=== PATIENT | male | born 1940 | race Caucasian/White ===

== ENCOUNTER 2019-05-07 18:05 | Emergency (ER) | payer OTHER ==
[2019-05-07] MEDS ORDERED: TETANUS & DIPHTHERIA TOX,ADULT 0.5 ML VIAL ONE (18:43)
[2019-05-07] MEDS ORDERED: NA CHLORIDE 0.9% 500 ML ONE (18:43)
[2019-05-07] MEDS ORDERED: CEFAZOLIN/SWI 1gm 1 GM/10 ML SYR ONE (18:43)
[2019-05-07] MEDS ORDERED: LIDOCAINE 1% MPF 30 ML VIAL ONE (19:00)
--- NOTE | 2019-05-07 19:07 | RAD REPORT ---
EXAM DESCRIPTION: CT - Head Brain Wo Cont - 05/07/2019 6:51 pm CLINICAL HISTORY: DIZZINESS Trauma, head injury, headache COMPARISON: No comparisons TECHNIQUE: All CT scans are performed using dose optimization technique as appropriate and may inclu de automated exposure control or mA/KV adjustment according to patient size. FINDINGS: No intracranial hemorrhage, hydrocephalus or extra-axial fluid collection.Mild generalized brain atrophy is present with moderate periventricular and deep white matter chronic microvascular i schemic changes.No areas of brain edema or evidence of midline shift. The paranasal sinuses and mastoids are clear. The calvarium is intact. Small right frontal scalp nadine juvenal. IMPRESSION: No acute intracranial abnormality.
[2019-05-07] MEDS ORDERED: LIDOCAINE 1% W/EPI 1:100,000 MDV 50 ML VIAL ONE (19:10)
--- NOTE | 2019-05-07 19:38 | ER ---
Nurse's Notes [facility] Name: Eagle Juarez Age: 78 yrs Sex: Male : 1940 Arrival Date: 05/07/2019 Time: 18:15 Bed 4 Private MD: Diagnosis: Laceration without foreign body of other part of head-complex, arterial involvment, large hematoma;Other specified injuries of head-deep, complex Presentation: 05/07 18:17 Presenting complaint: Patient states: Riding mower, didn't duck and right side of head jl7 hit the tree limb approx. 30-45 min ago, denies any pain, nausea, visual disturbance, GARCIA or dizziness. Transition of care: patient was not received from another setting of care. Onset of symptoms was May 07, 2019. Risk Assessment: Do you want to hurt yourself or someone else? Patient reports no desire to harm self or others. Initial Sepsis Screen: Does the patient meet any 2 criteria? No. Patient's initial sepsis screen is negative. Does the patient have a suspected source of infection? No. Patient's initial sepsis screen is negative. Care prior to arrival: None. 18:17 Method Of Arrival: Ambulatory 7 18:17 Acuity: JUAN 3 jl7 21:09 Complicating Factors: There are no complicating factors for this patient. jd3 Triage Assessment: 18:21 General: Appears in no apparent distress. uncomfortable, Behavior is calm, cooperative, jl7 appropriate for age. Pain: Denies pain. EENT: No signs and/or symptoms were reported regarding the EENT system. Neuro: Level of Consciousness is awake, alert, obeys commands, Oriented to person, place, time, situation, Appropriate for age Moves all extremities. Full function Speech is normal, Facial symmetry appears normal. Cardiovascular: Patient's skin is warm and dry. Respiratory: Airway is patent Respiratory effort is even, unlabored, Respiratory pattern is regular, symmetrical. Derm: Skin is pink, warm \T\ dry. Injury Description: Laceration sustained to right temporal area is contaminated, was sustained 30-60 minutes ago. is bleeding moderately. Historical: - Allergies: 18:21 No Known Allergies; jl7 - Home Meds: 18:21 None [Active]; jl7 - PMHx: 18:21 Cataracts; jl7 - PSHx: 18:21 cataract surgery; jl7 - Immunization history:: Adult Immunizations not up to date, Last tetanus immunization: > 10 years ago. - Social history:: Smoking status: Patient/guardian denies using tobacco. - Ebola Screening: : No symptoms or risks identified at this time. - Family history:: not pertinent. Screenin:52 Abuse screen: Denies threats or abuse. Denies injuries from another. Nutritional jl7 screening: No deficits noted. Tuberculosis screening: No symptoms or risk factors identified. Fall Risk None identified. Assessment: 18:38 General: See triage assessment. jl7 19:30 General: Appears in no apparent distress. comfortable, Behavior is calm, cooperative, jd3 appropriate for age. Pain: Denies pain. Neuro: Level of Consciousness is awake, alert, obeys commands, Oriented to person, place, time, situation. Cardiovascular: Capillary refill < 3 seconds Patient's skin is warm and dry. Respiratory: Airway is patent Respiratory effort is even, unlabored, Respiratory pattern is regular, symmetrical. GI: No signs and/or symptoms were reported involving the gastrointestinal system. : No signs and/or symptoms were reported regarding the genitourinary system. EENT: No signs and/or symptoms were reported regarding the EENT system. Derm: Skin is intact, Skin is dry, Skin is normal, Skin temperature is warm. Musculoskeletal: Circulation, motion, and sensation intact. Range of motion: intact in all extremities. Injury Description: Laceration sustained to right taoist is contaminated, bleeding moderately. 20:51 Reassessment: Patient appears in no apparent distress at this time. Patient and/or [facility] family updated on plan of care and expected duration. Pain level reassessed. Patient is alert, oriented x 3, equal unlabored respirations, skin warm/dry/pink. report given to Preeti RUSS at [facility]. bleeding controlled currently after provider sutured laceration. 21:09 Reassessment: Patient appears in no apparent distress at this time. No changes from j previously documented assessment. Patient and/or family updated on plan of care and expected duration. Pain level reassessed. Patient is alert, oriented x 3, equal unlabored respirations, skin warm/dry/pink. 21:19 Reassessment: report given to [facility]. [facility] Vital Signs: 18:21 BP 170 / 80; Pulse 66; Resp 18 S; Pulse Ox 95% on R/A; Pain 0/10; jl7 21:06 BP 180 / 77; Pulse 58; Resp 18 S; Pulse Ox 96% on R/A; jd3 ED Course: 18:13 Alek Ordonez MD is Attending Physician. zacarias 18:15 Patient arrived in ED. as 18:17 Oskar Rod, RN is Primary Nurse. jl7 18:19 Triage completed. jl7 18:21 Arm band placed on right wrist. Pressure dressing applied. jl7 18:51 CT Head Brain wo Cont In Process Unspecified. EDMS 18:52 Patient has correct armband on for positive identification. Placed in gown. Bed in low jl7 position. Call light in reach. Side rails up X 1. Pulse ox on. NIBP on. 19:03 Primary Nurse role handed off by Oskar Rod, JEB cc3 19:03 Aidee Perez is Primary Nurse. cc3 19:30 Primary Nurse role handed off by Aidee Perez jd3 19:30 Damon Barraza RN is Primary Nurse. jd3 19:45 Assist provider with laceration repair on right taoist that was between 7.6 to 12.5 cm jd3 using sutures. Set up tray. Performed by Alek Ordonez MD Dressed with 4X4s, Kerlix, Patient tolerated well. 20:15 Inserted saline lock: 20 gauge in left antecubital area, using aseptic technique. Blood jd3 collected. placed by Julian RUSS. 21:20 Patient transferred, IV remains in place. jd3 Administered Medications: 19:09 Drug: Lidocaine-Epinephrine -1%: (1:100,000) 10 ml {Note: given by Dr. 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 Exp: jd3 12/18/2020. Lot #: [id number]. } Route: IM; Site: right deltoid; 21:09 Follow up: Response: No adverse reaction jd3 20:36 Drug: Ancef 1 grams Route: IVPB; Site: left antecubital; jd3 21:09 Follow up: Response: No adverse reaction; IV Status: Completed infusion; IV Intake: [id number] Intake: 21:09 IV: 10ml; Total: 10ml. jd3 21:09 IV: 500ml; Total: 510ml. jd3 Outcome: 19:37 ER care complete, transfer ordered by MD. adames 21:19 Transferred by ground EMS to [facility], Transfer form completed. X-rays sent jd3 w/ patient. 21:19 Condition: stable 21:19 Instructed on the need for transfer, Demonstrated understanding of instructions. 21:20 Patient left the ED. jd3 Signatures: Dispatcher [employer] EDAlke Rodney MD MD cha Martinez, Amelia as Leal, Jahala, RN RN jl7 Damon Barraza RN RN jd3 Aidee Perez cc3 Corrections: (The following items were deleted from the chart) 21: 20:51 Reassessment: report given to Preeti RUSS at [facility]. jd3 jd3
--- NOTE | 2019-05-07 19:38 | EDPHYS ---
Physician Documentation [facility] Name: Eagle Juarez Age: 78 yrs Sex: Male : 1940 Arrival Date: 05/07/2019 Time: 18:15 Bed 4 Private MD: ED Physician Alek Ordonez HPI: 05/07 18:38 This 78 yrs old Male presents to ER via Ambulatory with complaints of zacarias Laceration To Head. 18:38 The patient has a laceration related to: doing yard work, occurred outdoors. The zacarias laceration(s) is(are) located on the top of head and right sikh. Onset: The symptoms/episode began/occurred just prior to arrival. Associated signs and symptoms: The patient has no apparent associated signs or symptoms. Historical: - Allergies: 18:21 No Known Allergies; jl7 - Home Meds: 18:21 None [Active]; jl7 - PMHx: 18:21 Cataracts; jl7 - PSHx: 18:21 cataract surgery; jl7 - Immunization history:: Adult Immunizations not up to date, Last tetanus immunization: > 10 years ago. - Social history:: Smoking status: Patient/guardian denies using tobacco. - Ebola Screening: : No symptoms or risks identified at this time. - Family history:: not pertinent. ROS: 18:38 Constitutional: Negative for fever, chills, and weight loss, Eyes: Negative for injury, zacarias pain, redness, and discharge, ENT: Negative for injury, pain, and discharge, Neck: Negative for injury, pain, and swelling, Cardiovascular: Negative for chest pain, palpitations, and edema, Respiratory: Negative for shortness of breath, cough, wheezing, and pleuritic chest pain, Abdomen/GI: Negative for abdominal pain, nausea, vomiting, diarrhea, and constipation, Back: Negative for injury and pain, : Negative for injury, bleeding, discharge, and swelling, MS/Extremity: Negative for injury and deformity, Neuro: Negative for headache, weakness, numbness, tingling, and seizure, Psych: Negative for depression, anxiety, suicide ideation, homicidal ideation, and hallucinations, Allergy/Immunology: Negative for hives, rash, and allergies, Endocrine: Negative for neck swelling, polydipsia, polyuria, polyphagia, and marked weight changes, Hematologic/Lymphatic: Negative for swollen nodes, abnormal bleeding, and unusual bruising. 18:38 Skin: Positive for laceration(s). Exam: 18:38 Constitutional: This is a well developed, well nourished patient who is awake, alert, zacarias and in no acute distress. Eyes: Pupils equal round and reactive to light, extra-ocular motions intact. Lids and lashes normal. Conjunctiva and sclera are non-icteric and not injected. Cornea within normal limits. Periorbital areas with no swelling, redness, or edema. ENT: Nares patent. No nasal discharge, no septal abnormalities noted. Tympanic membranes are normal and external auditory canals are clear. Oropharynx with no redness, swelling, or masses, exudates, or evidence of obstruction, uvula midline. Mucous membranes moist. Neck: Trachea midline, no thyromegaly or masses palpated, and no cervical lymphadenopathy. Supple, full range of motion without nuchal rigidity, or vertebral point tenderness. No Meningismus. Chest/axilla: Normal chest wall appearance and motion. Nontender with no deformity. No lesions are appreciated. Cardiovascular: Regular rate and rhythm with a normal S1 and S2. No gallops, murmurs, or rubs. Normal PMI, no JVD. No pulse deficits. Respiratory: Lungs have equal breath sounds bilaterally, clear to auscultation and percussion. No rales, rhonchi or wheezes noted. No increased work of breathing, no retractions or nasal flaring. Abdomen/GI: Soft, non-tender, with normal bowel sounds. No distension or tympany. No guarding or rebound. No evidence of tenderness throughout. Back: No spinal tenderness. No costovertebral tenderness. Full range of motion. Skin: Warm, dry with normal turgor. Normal color with no rashes, no lesions, and no evidence of cellulitis. MS/ Extremity: Pulses equal, no cyanosis. Neurovascular intact. Full, normal range of motion. Neuro: Awake and alert, GCS 15, oriented to person, place, time, and situation. Cranial nerves II-XII grossly intact. Motor strength 5/5 in all extremities. Sensory grossly intact. Cerebellar exam normal. Normal gait. Psych: Awake, alert, with orientation to person, place and time. Behavior, mood, and affect are within normal limits. 18:38 Head/face: Noted is a laceration(s), that is deep, that is jagged, 3 cm(s). Vital Signs: 18:21 BP 170 / 80; Pulse 66; Resp 18 S; Pulse Ox 95% on R/A; Pain 0/10; jl7 21:06 BP 180 / 77; Pulse 58; Resp 18 S; Pulse Ox 96% on R/A; jd3 Laceration: 18:38 Wound Repair of 3cm ( 1.2in ) subcutaneous laceration to top of head and left temporal zacarias area. Irregularly shaped.. Skin/tissue flap noted.. Distal neuro/vascular/tendon intact. Anesthesia: Local anesthetic administered with 8 mls of 1% lidocaine w/ Epi. Wound prep: Moderate cleansing by me, Copious irrigation. Skin closed with 6 1-0 Prolene using interrupted sutures and sterile technique. Dressed with Neosporin. Patient tolerated well. MDM: 18:13 Patient medically screened. [place] 18:44 Data reviewed: vital signs, nurses notes, radiologic studies, CT scan. [place] 05/07 19:14 Order name: CBC with Diff [facility] 05/07 19:14 Order name: CMP [facility] 05/07 18:37 Order name: CT Head Brain wo Cont; Complete Time: 19:32 [place] 05/07 18:37 Order name: Prolene, Sutures; Complete Time: 18:52 [place] 05/07 18:37 Order name: Dressing - Wound; Complete Time: 19:40 [place] 05/07 18:37 Order name: Gloves, Sterile; Complete Time: 18:52 [place] 05/07 18:37 Order name: Setup Suture Tray; Complete Time: 18:52 [place] 05/07 19:38 Order name: Wound dressing: surgicel, pressure dressing; Complete Time: 19:40 [place] 05/07 19:41 Order name: NPO; Complete Time: 19:42 [place] Administered Medications: 19:09 Drug: Lidocaine-Epinephrine -1%: (1:100,000) 10 ml {Note: given by Dr. 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 Exp: jd3 12/18/2020. Lot #: [id number]. } Route: IM; Site: right deltoid; 21:09 Follow up: Response: No adverse reaction jd3 20:36 Drug: Ancef 1 grams Route: IVPB; Site: left antecubital; jd3 21:09 Follow up: Response: No adverse reaction; IV Status: Completed infusion; IV Intake: [id number] Disposition: 05/07/19 19:37 Transfer ordered to [facility]. Diagnosis are Laceration without foreign body of other part of head - complex, arterial involvment, large hematoma, Other specified injuries of head - deep, complex. - Reason for transfer: Higher level of care. - Accepting physician is to [place] [facility]. - Condition is Fair. - Problem is new. - Symptoms have improved. Signatures: Dispatcher [employer] EDAlek Rodney MD MD cha Leal, Jahala, RN RN jl7 Damon Barraza RN RN jd3 Corrections: (The following items were deleted from the chart) 19:37 18:37 Dressing - Wound ordered. zacarias adames 21:20 19:37 05/07/2019 19:37 Transfer ordered to [facility]. jd3 Diagnosis is Laceration without foreign body of other part of head - complex, arterial involvment, large hematoma; Other specified injuries of head - deep, complex. Reason for transfer: Higher level of care. Accepting physician is to [place] [facility]. Condition is Fair. Problem is new. Symptoms have improved. zacarias
[2019-05-07 20:17] LABS: Absolute Lymphocytes (CBC) 3.5 K/uL (0.7-4.9); Basophils % 1.2 % (0-1.3); Hematocrit 42.2 % (39.6-49.0); Lymphocytes % 27.4 % (15.3-44.8); MPV 9.8 fL (7.6-11.3); RBC Red Blood Cell Count 4.26 M/uL (4.33-5.43)
[2019-05-07 20:36] LABS: Albumin 3.9 g/dL (3.4-5.0); Bilirubin Total 0.5 mg/dL (0.2-1.0); Potassium 4.2 mmol/L (3.5-5.1); Protein, Total 8.5 g/dL (6.4-8.2)
== END 2019-05-07 21:20 | disposition short-term general hospital (02) ==
LOC: ER 18:05
PROC: 0JQ00ZZ Repair Scalp Subcutaneous Tissue and Fascia, Open Approach (ICD-10-PCS; principal; 2019-05-07)
DX: S01.01XA Laceration without foreign body of scalp, initial encounter (principal); S00.93XA Contusion of unspecified part of head, initial encounter; Y93.H9 Activity, other involving exterior property and land maintenance, building and construction; Z23 Encounter for immunization
CPT/HCPCS: 96365; 85025; 36415; 80053; 70450; 90471; 90714; 99285; 12002; J0690

== ENCOUNTER 2021-06-22 13:36 | Emergency (ER) | payer OTHER ==
--- NOTE | 2021-06-22 14:01 | RAD REPORT ---
EXAM DESCRIPTION: CT - Ct Stroke Brain Wo Cont - 06/22/2021 1:50 pm CLINICAL HISTORY: stroke protocol Headache, drowsiness, CVA symptomology COMPARISON: Head Brain Wo Cont dated 05/07/2019 TECHNIQUE: All CT scans are performed using dose optimization technique as appropriate and may inclu de automated exposure control or mA/KV adjustment according to patient size. FINDINGS: No intracranial hemorrhage, hydrocephalus or extra-axial fluid collection.Mild generalized brain atrophy is present with moderate periventricular and deep white matter chronic microvascular i schemic changes. 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 In the right occipital region/ right posterior cerebral artery territory is eq uivocal findings of sulcal effacement. The paranasal sinuses and mastoids are clear. The calvarium is intact. IMPRESSION: No acute hemorrhage, hydrocephalus or midline shift. Equivocal findings of sulcal effacement indication fusion of the right posterior cerebral artery terr itory could indicate acute ischemia. MRI brain followup would be useful. The findings were discussed with Dr. Wilson in the ER On 06/22/2021 at 1:56 p.m. by telephone.
[2021-06-22 14:08] LABS: Absolute Lymphocytes (CBC) 2.6 K/uL (0.7-4.9); Basophils % 1.1 % (0-1.3); Hematocrit 40.1 % (39.6-49.0); Lymphocytes % 22.7 % (15.3-44.8); MPV 8.2 fL (7.6-11.3); RBC Red Blood Cell Count 4.15 M/uL (4.33-5.43)
[2021-06-22 14:12] LABS: Protime INR 1.03
[2021-06-22] MEDS ORDERED: NA CHLORIDE 0.9% 1,000 ML ONE (14:23)
[2021-06-22 14:29] LABS: Potassium 4.3 mmol/L (3.5-5.1)
[2021-06-22] MEDS ORDERED: ALTEPLASE 100 ML IV ONE (14:35)
[2021-06-22] MEDS ORDERED: NA CHLORIDE 0.9% 100 ML ONE (14:35)
[2021-06-22] MEDS ORDERED: LABETALOL 20 MG/4ML SYRINGE IV ONE (14:50)
--- NOTE | 2021-06-22 15:00 | RAD REPORT ---
EXAM DESCRIPTION: CT - Head angio - 06/22/2021 2:45 pm CLINICAL HISTORY: possible stroke Headache, drowsiness, CVA symptomology COMPARISON: Ct Stroke Brain Wo Cont dated 06/22/2021; Head Brain Wo Cont dated 05/07/2019 TECHNIQUE: CT angiography of the head was performed with MIPs. All CT scans are performed using dose optimization technique as appropriate and may include automated exposure control or mA/KV adjustment according to patient size. FINDINGS: No evidence of aneurysm is detected. Both M1 segments demonstrate irregular appearance lik shaylee related to atherosclerotic narrowings, greater on the left. No large vessel occlusion seen. Antegrade flow is seen in the vertebral arteries. Left vertebral artery appears dominant. The visualized dural venous sinuses are patent. 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 No large vessel occlusion evident.
--- NOTE | 2021-06-22 15:05 | EDPHYS ---
Physician Documentation [facility] Name: Eagle Juarez Age: 80 yrs Sex: Male : 1940 Arrival Date: 06/22/2021 Time: 13:42 Bed 3 Private MD: ED Physician Xenia Wilson HPI: 06/22 14:17 This 80 yrs old Male presents to ER via Wheelchair with complaints of S/S of ma2 Possible Stroke. 14:17 The patient's problem is reported as visual difficulty, weakness. Onset: The ma2 symptoms/episode began/occurred suddenly, 1 hour(s) ago. Associated signs and symptoms: Pertinent positives: ataxia, Pertinent negatives: chest pain, confusion, diarrhea, headache. Severity of symptoms: At their worst the symptoms were severe in the emergency department the symptoms are unchanged. The patient has not experienced similar symptoms in the past. Historical: - Allergies: 13:45 No Known Allergies; ll1 - PMHx: 13:45 Cataracts; ll1 - Immunization history:: Adult Immunizations up to date. - Social history:: Smoking status: Patient denies any tobacco usage or history of. - Family history:: not pertinent. ROS: 14:17 Constitutional: Negative for fever, chills, and weight loss. ma2 14:17 All other systems are negative. Exam: 14:17 Radiologist reports: Possible posterior stroke no acute bleeding ma2 14:17 Constitutional: This is a well developed, well nourished patient who is awake, alert, and in no acute distress. Head/Face: Normocephalic, atraumatic. Eyes: Pupils equal round and reactive to light, extra-ocular motions intact. Lids and lashes normal. Conjunctiva and sclera are non-icteric and not injected. Cornea within normal limits. Periorbital areas with no swelling, redness, or edema. ENT: Nares patent. No nasal discharge, no septal abnormalities noted. Tympanic membranes are normal and external auditory canals are clear. Oropharynx with no redness, swelling, or masses, exudates, or evidence of obstruction, uvula midline. Mucous membranes moist. Neck: Trachea midline, no thyromegaly or masses palpated, and no cervical lymphadenopathy. Supple, full range of motion without nuchal rigidity, or vertebral point tenderness. No Meningismus. Cardiovascular: Regular rate and rhythm with a normal S1 and S2. No gallops, murmurs, or rubs. Normal PMI, no JVD. No pulse deficits. Respiratory: Lungs have equal breath sounds bilaterally, clear to auscultation and percussion. No rales, rhonchi or wheezes noted. No increased work of breathing, no retractions or nasal flaring. Abdomen/GI: Soft, non-tender, with normal bowel sounds. No distension or tympany. No guarding or rebound. No evidence of tenderness throughout. MS/ Extremity: Pulses equal, no cyanosis. Neurovascular intact. Full, normal range of motion. 14:17 Neuro: Orientation: to person, place, time \T\ situation. Mentation: is normal, Memory: is normal, Cranial nerves: upper altitudinal loss noted, hononymous hemianopia noted, extraocular movements show gaze deviation to the lateral on right eye, medial on left eye, forward on right eye and forward on left eye, Facial palsy and sensory deficits are absent. Decreased sensation on left ear and left cheek, Speech is clear and appropriate. Tongue strength is normal, Cerebellar function: dysmetria is noted on the left, Motor: strength is 5/5 in the right hand, right arm and right leg, strength is 4/5 in the left arm and left leg, Sensation: Gait: is unsteady. Vital Signs: 13:44 Pain 0/10; ll1 13:55 BP 173 / 76; Pulse 75; Resp 18; Temp 98; Pulse Ox 97% on R/A; Weight 86.18 kg; Height 5 kg ft. 8 in. (172.72 cm); Pain 0/10; 15:24 BP 166 / 86; Pulse 74; Resp 15; Pulse Ox 97% on R/A; Pain 0/10; ss 15:24 Temp 97.6(TE); ss 15:30 ss 13:55 Body Mass Index 28.89 (86.18 kg, 172.72 cm) kg 15:30 1530- SEE PAPER CHART/ FLOW SHEET FOR FURTHER DOCUMENTATION NIH Stroke Scale Scores: 14:17 NIHSS Score: 7 ma2 14:32 NIHSS Score: 6 kg MDM: 13:52 Patient medically screened. ma2 14:17 Differential diagnosis: CVA, TIA, Dementia, metabolic disorder, drug effects. Data ma2 reviewed: vital signs, nurses notes. Counseling: I had a detailed discussion with the patient and/or guardian regarding: the historical points, exam findings, and any diagnostic results supporting the discharge/admit diagnosis, the presence of at least one elevated blood pressure reading (>120/80) during this emergency department visit, the need for outpatient follow up. Counseling: I had a detailed discussion with the patient and/or guardian regarding: Patient is a TPA candidate, meets all inclusion, exclusion factors does not exist, I discussed with the family that he needs thrombolytic, discussed the risk benefits, explained benefits outweigh risk. However would like to think about it and consult with family friend. I explained the urgency and the time factor. She understand the risk involved with waiting.. 15:01 ED course: Or neurologist Dr. Tse is not available today, patient with acute stroke [facility] need to be transferred to stroke center. Will transfer for higher level of care accepted by Dr. Bernabe. 15:01 Response to treatment: There is no appreciated change of the patient's symptoms at this [facility] time. 06/22 13:43 Order name: Basic Metabolic Panel; Complete Time: 14:57 06/22 13:43 Order name: CBC with Diff 06/22 13:43 Order name: Protime (+inr); Complete Time: 14:17 06/22 13:43 Order name: Ptt, Activated; Complete Time: 14:17 06/22 13:53 Order name: LFT's [facility] 06/22 13:43 Order name: CT Stroke Brain w/o Contrast; Complete Time: 14:17 06/22 13:56 Order name: Glucose, Ancillary Testing; Complete Time: 14:17 [facility] 06/22 14:08 Order name: CBC Smear Scan [facility] 06/22 16:08 Order name: SARS-COV-2 RT PCR [facility] 06/22 13:43 Order name: Stroke CXR 1 View 06/22 13:43 Order name: EKG; Complete Time: 13:44 06/22 13:43 Order name: Accucheck; Complete Time: 14:41 06/22 13:43 Order name: Cardiac monitoring; Complete Time: 14:41 06/22 13:43 Order name: EKG - Nurse/Tech 06/22 13:43 Order name: IV Saline Lock; Complete Time: 14:41 ss 06/22 13:43 Order name: Labs collected and sent; Complete Time: 14:41 ss 06/22 13:43 Order name: NPO; Complete Time: 15:55 ss 06/22 13:43 Order name: O2 Per Protocol; Complete Time: 14:41 ss 06/22 13:43 Order name: O2 Sat Monitoring; Complete Time: 14:41 ss 06/22 13:58 Order name: Head angio; Complete Time: 15:01 EDCO 06/22 13:58 Order name: Neck Angio EDCO 06/22 13:43 Order name: Stroke Swallow Screen 06/22 13:53 Order name: Urine Dipstick-Ancillary (obtain specimen) ma2 Administered Medications: 14:27 Drug: Labetalol 10 mg Route: IVP; Infused Over: 2 mins; Site: right upper arm; kg 14:45 Follow up: Response: Blood pressure is lowered ss 14:30 Drug: NS 0.9% 1000 ml Route: IV; Rate: 1 bolus; Site: left forearm; ss 15:30 Follow up: IV Status: Completed infusion; IV Intake: 1000ml ss 14:48 Drug: ACTIvase (alteplase) {Co-Signature: sv (Lesvia Arias RN).} {Note: Total dose ss of 78 mg given.} Route: IV Thrombolytics; Rate: calculated rate; Infused Over: 60 mins; 16:54 Follow up: infusion continued upon transfer ss 15:30 Not Given (Other Intervention Used): tpa 90 mg IVP bolus ss Disposition Summary: 06/22/21 15:04 Transfer Ordered Transfer Location: [facility] ma2 Reason: Higher level of care ma2 Condition: Stable ma2 Problem: new ma2 Symptoms: are unchanged ma2 Accepting Physician: dr. Goldman(06/22/21 16:51) ss Diagnosis - Cerebral infarction, unspecified ma2 Forms: - Medication Reconciliation Form ma2 - SBAR form ma2 Critical care time excluding procedures: 14:52 Critical care time: Bedside Care: 30 minutes, Consultation: 10 minutes, Family ma2 Intervention: 10 minutes. Total time: 50 minutes NIH Stroke Scale - NIH Stroke Score Date: 06/22/2021 Time: 14:17 Total Score = 7 1a. Level of Consciousness (LOC) - 0(Alert) 1b. Level of Consciousness (LOC) (Month \T\ Age) - 0(Both) 1c. LOC Commands (Open \T\ Closes Eyes/Direct Response Consultant) - 0(Both) 2. Best Gaze (Lateral Gaze Paresis) - 1(Partial gaze palsy) 3. Visual Field Loss - 1(Partial hemianopia) 4. Facial Palsy - 0(Normal) 5a. Left Arm: Motor (10-second hold) - 1(Drift) 5b. Right Arm: Motor (10-second hold) - 0(No drift) 6a. Left Leg: Motor (5-second hold - always test supine) - 1(Drift) 6b. Right Leg: Motor (5-second hold - always test supine) - 0(No drift) 7. Limb Ataxia (finger/nose \T\ heel/jessica - test with eyes open) - 1(Present in one limb) 8. Sensory Loss (pinprick arms/legs/face) - 1(Mild to moderate loss) 9. Best Language: Aphasia (description/naming/reading) - 0(No aphasia) 10. Dysarthria (speech clarity - read or repeat words) - 0(Normal) 11. Extinction and Inattention (visual/tactile/auditory/spatial/personal) - 1(Present) Initials: ma2 NIH Stroke Scale - NIH Stroke Score Date: 06/22/2021 Time: 14:32 Total Score = 6 1a. Level of Consciousness (LOC) - 0(Alert) 1b. Level of Consciousness (LOC) (Month \T\ Age) - 0(Both) 1c. LOC Commands (Open \T\ Closes Eyes/Direct Response Consultant) - 0(Both) 2. Best Gaze (Lateral Gaze Paresis) - 0(Normal) 3. Visual Field Loss - 1(Partial hemianopia) 4. Facial Palsy - 0(Normal) 5a. Left Arm: Motor (10-second hold) - 1(Drift) 5b. Right Arm: Motor (10-second hold) - 0(No drift) 6a. Left Leg: Motor (5-second hold - always test supine) - 1(Drift) 6b. Right Leg: Motor (5-second hold - always test supine) - 0(No drift) 7. Limb Ataxia (finger/nose \T\ heel/jessica - test with eyes open) - 1(Present in one limb) 8. Sensory Loss (pinprick arms/legs/face) - 1(Mild to moderate loss) 9. Best Language: Aphasia (description/naming/reading) - 1(Mild to moderate aphasia) 10. Dysarthria (speech clarity - read or repeat words) - 0(Normal) 11. Extinction and Inattention (visual/tactile/auditory/spatial/personal) - 0(No abnormality) Initials: kg Signatures: Dispatcher [employer] EDAndreina Waller, JEB RN ss Xenia Wilson MD MD ma2 Shruthi Arnold RN RN ll1 Peggy Hassan RN RN kg Lesvia Arias RN sv Corrections: (The following items were deleted from the chart) 15:17 15:01 CORONAVIRUS+ frandy. EDCO EDMS 16:51 15:04 dr. Goldman ma2
--- NOTE | 2021-06-22 15:05 | ER ---
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 States his GARCIA is better now. noticed his L side is very weak. Coronavirus screen: Client denies travel out of the [place] in the last 14 days. At this time, the client does not indicate any symptoms associated with coronavirus-19. Ebola Screen: Patient denies travel to an Ebola-affected area in the 21 days before illness onset. An acute neurological deficit is present. The charge nurse has been notified. The patient has been moved to a treatment area. Initial Sepsis Screen: Does the patient meet any 2 criteria? No. Patient's initial sepsis screen is negative. Does the patient have a suspected source of infection? No. Patient's initial sepsis screen is negative. Risk Assessment: Do you want to hurt yourself or someone else? Patient reports no desire to harm self or others. Onset of symptoms was June 22, 2021. 13:44 Method Of Arrival: Wheelchair ll1 13:44 Acuity: JUAN 2 ll1 Stroke Activation: Symptom onset < 3 hours Physician: Stroke Attending; Name: ; Notified At: ; Arrived At: Physician: Chief Stroke Resident; Name: ; Notified At: ; Arrived At: Physician: Stroke Resident; Name: ; Notified At: ; Arrived At: Physician: ED Attending; Name: ; Notified At: ; Arrived At: Physician: ED Resident; Name: ; Notified At: ; Arrived At: Historical: - Allergies: 13:45 No Known Allergies; ll1 - PMHx: 13:45 Cataracts; ll1 - Immunization history:: Adult Immunizations up to date. - Social history:: Smoking status: Patient denies any tobacco usage or history of. - Family history:: not pertinent. Screenin:00 Abuse screen: Denies threats or abuse. Denies injuries from another. Nutritional ss screening: No deficits noted. Tuberculosis screening: No symptoms or risk factors identified. Never had TB. Fall Risk None identified. Assessment: 13:41 Reassessment: Code Stroke called. Pt to CT now VIA stretcher. ss 13:41 General: Appears in no apparent distress. comfortable, Behavior is calm, cooperative, ss quiet. Neuro: Level of Consciousness is awake, alert, obeys commands, Oriented to person, place, time, situation, Speech is normal, Reports mild headache that has improved upon arrival to ED. . Respiratory: Airway is patent Respiratory effort is even, unlabored, Respiratory pattern is regular, symmetrical. GI: Patient currently denies diarrhea, nausea, vomiting. EENT: Oral mucosa is moist. Derm: Skin is intact, is healthy with good turgor, Skin is pink, warm \T\ dry. normal. Musculoskeletal: L sided weakness noted. NIHSS 6. 13:55 Patient has been NPO before screening. The patient is alert, and able to follow ss commands. The patient does not exhibit slurred or garbled speech. The patient is not exhibiting difficulty speaking. The patient is able to swallow own secretions with no drooling or need for suction. Patient tolerated one teaspoon of water. No drooling, immediate coughing, gurgling, or clearing of the throat was noted. The patient tolerated 90mL of water. No drooling, immediate coughing, gurgling, or clearing of the throat was noted. The patient passed the bedside swallow screening. Oral medications may be given as ordered. Contact Physician for further diet orders. Provider notified of bedside swallow screening results: Xenia Wilson MD. T-PA (Activase) Screening: Indications: Treatment will start within 4.5 hours onset of symptoms: Yes. No evidence of intracranial hemorrhage or CT of head and no evidence of peripheral hemorrhage or recent CVA:. 14:32 VAN Scoring: Visual Disturbance: No visual disturbance noted. Aphasia: No aphasia kg noted. Neglect: Patient is unable to feel both sides of body being touched at the same time. Provider notified of +VAN scoring. Pain: Complains of pain in scalp. 14:38 Reassessment: PT to CT now for CTA VIA stretcher accompanied by JEB Yusuf and PAULETTE Day tech with monitors. 15:29 Reassessment: Current NIHSS is 3. See paper chart for further documentation. Report ss given to [employer] member, Kalli. ETA is 10 minutes. Vital Signs: 13:44 Pain 0/10; ll1 13:55 BP 173 / 76; Pulse 75; Resp 18; Temp 98; Pulse Ox 97% on R/A; Weight 86.18 kg; Height 5 kg ft. 8 in. (172.72 cm); Pain 0/10; 15:24 BP 166 / 86; Pulse 74; Resp 15; Pulse Ox 97% on R/A; Pain 0/10; ss 15:24 Temp 97.6(TE); ss 15:30 ss 13:55 Body Mass Index 28.89 (86.18 kg, 172.72 cm) kg 15:30 1530- SEE PAPER CHART/ FLOW SHEET FOR FURTHER DOCUMENTATION ss NIH Stroke Scale Scores: 14:17 NIHSS Score: 7 ma2 14:32 NIHSS Score: 6 kg ED Course: 13:42 Patient arrived in ED. ds1 13:45 Triage completed. ll1 13:46 Arm band placed on Patient placed in an exam room, on a stretcher. ll1 13:50 CT Stroke Brain w/o Contrast In Process Unspecified. EDMS 13:52 Xenia Wilson MD is Attending Physician. ma2 13:58 Inserted saline lock: 20 gauge in right antecubital area, using aseptic technique. ss Blood collected. 14:00 Patient has correct armband on for positive identification. sas clinical programmer on. Pulse ss ox on. NIBP on. Warm blanket given. 14:17 Inserted saline lock: 20 gauge in left forearm, using aseptic technique. ,using aseptic ss technique. Insertion by JEB De La Torre. 14:37 Stroke CXR 1 View In Process Unspecified. EDMS 14:45 Head angio In Process Unspecified. EDMS 14:45 Neck Angio In Process Unspecified. EDMS 14:48 initiated a transfer with Raquel Lewis Rn from the [facility]. eb 14:[address] Espana the neuro credit correspondence clerk for [facility] with Dr. Wilson for patient transfer consultation. 14:57 LFT's Sent. sv 15:17 administrative approval given by Raquel Lewis Rn/ patient has been accepted to [place] [id number] Bed 75/ Dr. Carl has accepted the patient in transfer/ report to be called to [phone]. 15:18 Dinesh Cohen, JEB is Primary Nurse. sv 15:45 No provider procedures requiring assistance completed. Patient transferred, IV remains ss in place. Administered Medications: 14:27 Drug: Labetalol 10 mg Route: IVP; Infused Over: 2 mins; Site: right upper arm; kg 14:45 Follow up: Response: Blood pressure is lowered ss 14:30 Drug: NS 0.9% 1000 ml Route: IV; Rate: 1 bolus; Site: left forearm; ss 15:30 Follow up: IV Status: Completed infusion; IV Intake: 1000ml ss 14:48 Drug: ACTIvase (alteplase) {Co-Signature: sv (Lesvia Arias RN).} {Note: Total dose ss of 78 mg given.} Route: IV Thrombolytics; Rate: calculated rate; Infused Over: 60 mins; 16:54 Follow up: infusion continued upon transfer ss 15:30 Not Given (Other Intervention Used): tpa 90 mg IVP bolus ss Intake: 15:30 IV: 1000ml; Total: 1000ml. Outcome: 15:04 ER care complete, transfer ordered by MD. rosenbaum 15:45 Transferred by helicopter to [facility], Transfer form completed. ss 15:45 Condition: improved 15:45 Instructed on the need for transfer. 16:51 Patient left the ED. NIH Stroke Scale - NIH Stroke Score Date: 06/22/2021 Time: 14:17 Total Score = 7 1a. Level of Consciousness (LOC) - 0(Alert) 1b. Level of Consciousness (LOC) (Month \T\ Age) - 0(Both) 1c. LOC Commands (Open \T\ Closes Eyes/Import And Export Clerk) - 0(Both) 2. Best Gaze (Lateral Gaze Paresis) - 1(Partial gaze palsy) 3. Visual Field Loss - 1(Partial hemianopia) 4. Facial Palsy - 0(Normal) 5a. Left Arm: Motor (10-second hold) - 1(Drift) 5b. Right Arm: Motor (10-second hold) - 0(No drift) 6a. Left Leg: Motor (5-second hold - always test supine) - 1(Drift) 6b. Right Leg: Motor (5-second hold - always test supine) - 0(No drift) 7. Limb Ataxia (finger/nose \T\ heel/jessica - test with eyes open) - 1(Present in one limb) 8. Sensory Loss (pinprick arms/legs/face) - 1(Mild to moderate loss) 9. Best Language: Aphasia (description/naming/reading) - 0(No aphasia) 10. Dysarthria (speech clarity - read or repeat words) - 0(Normal) 11. Extinction and Inattention (visual/tactile/auditory/spatial/personal) - 1(Present) Initials: robi NIH Stroke Scale - NIH Stroke Score Date: 06/22/2021 Time: 14:32 Total Score = 6 1a. Level of Consciousness (LOC) - 0(Alert) 1b. Level of Consciousness (LOC) (Month \T\ Age) - 0(Both) 1c. LOC Commands (Open \T\ Closes Eyes/Import And Export Clerk) - 0(Both) 2. Best Gaze (Lateral Gaze Paresis) - 0(Normal) 3. Visual Field Loss - 1(Partial hemianopia) 4. Facial Palsy - 0(Normal) 5a. Left Arm: Motor (10-second hold) - 1(Drift) 5b. Right Arm: Motor (10-second hold) - 0(No drift) 6a. Left Leg: Motor (5-second hold - always test supine) - 1(Drift) 6b. Right Leg: Motor (5-second hold - always test supine) - 0(No drift) 7. Limb Ataxia (finger/nose \T\ heel/jessica - test with eyes open) - 1(Present in one limb) 8. Sensory Loss (pinprick arms/legs/face) - 1(Mild to moderate loss) 9. Best Language: Aphasia (description/naming/reading) - 1(Mild to moderate aphasia) 10. Dysarthria (speech clarity - read or repeat words) - 0(Normal) 11. Extinction and Inattention (visual/tactile/auditory/spatial/personal) - 0(No abnormality) Initials: kg Signatures: Dispatcher [employer] Lesvia Griffin, Wilma Salcedo RN ds1 Andreina Gomes RN RN Xenia Wilson MD MD ma2 Caryl Montanez Lynsay, RN RN ll1 Peggy Hassan RN RN kg Lesvia Arias RN sv
--- NOTE | 2021-06-22 15:06 | RAD REPORT ---
EXAM DESCRIPTION: CT - Neck Angio - 06/22/2021 2:45 pm CLINICAL HISTORY: possible stroke Headache, drowsiness, CVA symptomology COMPARISON: No comparisons TECHNIQUE: CT angiography of the neck vessels was performed with MIPs. All CT scans are performed using dose optimization technique as appropriate and may include automated exposure control or mA/KV adjustment according to patient size. FINDINGS: A left aortic arch is identified with normal three vessel configuration of the great vesse ls. No significant flow abnormality is seen of the common carotid bilaterally. Proximal left internal carotid artery demonstrates 50-60% stenosis based on NASCET criteria. This is cause predominately by soft plaque with small hard plaque component present. Mild narrowing of the ri ght carotid bulb is seen estimated less than 50%. Normal flow is seen within both vertebral arteries. Left vertebral artery is dominant. IMPRESSION: 50-60% stenosis of the proximal left internal carotid artery is noted based on NASCET cr iteria.
--- NOTE | 2021-06-22 15:07 | RAD REPORT ---
EXAM DESCRIPTION: RAD - Chest Single View - 06/22/2021 2:37 pm CLINICAL HISTORY: stroke protocol Chest pain. COMPARISON: CHEST SINGLE VIEW dated 03/16/2008 FINDINGS: Portable technique limits examination quality. The lungs are mildly emphysematous but grossly clear. The heart is normal in size. No displaced fract ures. IMPRESSION: Mild COPD.
[2021-06-22 16:26] LABS: Blood Morphology Comment NOTED (NOT SEEN); Platelet Estimate ADEQ; Platelets, Giant NOTED; White Blood Cell Scan OK (OK)
[2021-06-22 16:27] LABS: Stomatocytes 1+; Target Cells FEW
[2021-06-22 16:59] VITALS: O2SAT 97
[2021-06-22 17:01] VITALS: BP 166/86; TEMP 97.6
== END 2021-06-22 16:51 | disposition short-term general hospital (02) ==
LOC: ER 13:36
DX: I63.9 Cerebral infarction, unspecified (principal); R29.707 NIHSS score 7; Z20.822 Contact with and (suspected) exposure to COVID-19
CPT/HCPCS: 96361; 92977; 93005 ×2; 85025; 80048; 36415; 85610; 82565; 82947; 85730; 70496; 70498; 70450; 71045; 96374; 99285; U0003; Q9967; J2997; J7030